=== PATIENT | female | born 1985 | race Caucasian/White ===

== ENCOUNTER → 2021-01-09 11:12 | Outpatient (CLI) | payer OTHER, SELFPAY ==
--- NOTE | 2021-01-09 11:18 | US_ITS ---
HISTORY: UTI. TECHNIQUE: Tapia scale and color Doppler sagittal and transverse images were obtained of the kidneys. # of images incl. paperwork: 105. COMPARISON: None. FINDINGS: RIGHT KIDNEY: 11.5 cm in length. Cortical thickness 11 mm. Echogenicity unremarkable. No hydronephrosis. No gross renal mass demonstrated. LEFT KIDNEY: 12.2 cm in length. Cortical thickness 12 mm. Echogenicity unremarkable. Moderate hydronephrosis. No gross renal mass demonstrated. URINARY BLADDER: Unremarkable at 329 cc with a wall thickness of 3 mm. Bilateral ureteral jets visualized.. OTHER: 2 cm dominant follicle in the right ovary. US/Kidney and Bladder IMPRESSION: Moderate left hydronephrosis. Consider correlation with CT to assess for obstructing stone or other lesion. at 1219 Reported and signed by: Jory Voss MD Electronically Signed: Jory Voss MD at 12:17 EDT Tel , Service support ,
== END ==
PROVIDERS: PCP Family Medicine; Referring Provider Urology; Visit Provider Urology
DX: N39.0 Urinary tract infection, site not specified (principal)
CPT/HCPCS: 76770

== ENCOUNTER → 2021-01-23 14:29 | Outpatient (CLI) | payer OTHER, SELFPAY ==
--- NOTE | 2021-01-23 14:37 | CT_ITS ---
EXAM: CT ABDOMEN AND PELVIS WITHOUT AND WITH INTRAVENOUS CONTRAST CLINICAL INDICATION: UTI TECHNIQUE: Helically acquired images were obtained of the abdomen and pelvis without and with intravenous contrast. This CT exam was performed using one or more of the following dose reduction techniques: automated exposure control, adjustment of the mA and/or kV according to patient size, and/or use of iterative reconstruction technique. This report was created using [employer] report generation technology. Delayed imaging was performed. Coronal and sagittal reformatted images were created and reviewed. CONTRAST: IV 100mL Isovue-300 COMPARISON: CT 01/09/2021. FINDINGS: LOWER THORAX: Unremarkable. Lung bases are clear. No cardiomegaly. No significant pericardial effusion. ABDOMEN: LIVER: Unremarkable. Homogeneous. No focal mass. GALLBLADDER AND BILE DUCTS: Unremarkable. No calcified gallstones. No gallbladder distention or wall edema. No intra- or extrahepatic biliary ductal dilation. PANCREAS: Unremarkable. No focal cystic or solid mass. SPLEEN: Unremarkable. Normal size without focal cystic or solid mass. ADRENALS: Unremarkable. No nodules. KIDNEYS AND URETERS: Bilateral renal calculi largest on the left measuring up to 5 mm. 5.1 mm x 8.5 mm proximal left ureteral calculus at the inferior L3 level. Mild left hydronephrosis most conspicuous on delayed imaging. Normal renal size and position. STOMACH AND BOWEL: Unremarkable. No stomach or bowel distention. No focal inflammatory change. PELVIS: APPENDIX: No evidence of acute appendicitis. BLADDER: Unremarkable. REPRODUCTIVE: Vaginal tampon. ABDOMEN and PELVIS: INTRAPERITONEAL SPACE: Unremarkable. No ascites or other fluid collection. No free air. BONES/JOINTS: See above. SOFT TISSUES: Unremarkable. No discrete abdominal or pelvic wall hernia. VASCULATURE: Unremarkable. Abdominal aorta is non-dilated. LYMPH NODES: Unremarkable. No enlarged lymph nodes. CT/CT Abd/Pelvis W/WO Contrast IMPRESSION: 1. Bilateral renal calculi largest on the left measuring up to 5 mm. 2. 5.1 mm x 8.5 mm proximal left ureteral calculus at the inferior L3 level. 3. Mild left hydronephrosis most conspicuous on delayed imaging. Electronically Signed: Manuelito Alvarado MD ([place]) at 15:38 EDT , Service support ,
== END ==
PROVIDERS: PCP Family Medicine; Referring Provider Urology; Visit Provider Urology
DX: N13.30 Unspecified hydronephrosis (principal); N39.0 Urinary tract infection, site not specified
CPT/HCPCS: 74178; Q9967

== ENCOUNTER → 2021-01-24 | Outpatient (CLI) | payer OTHER, SELFPAY | END | disposition home or self-care (01) | LOC: LABSPEC 13:23 | PROVIDERS: PCP Family Medicine; Referring Provider Urology; Visit Provider Urology | DX: N39.0 Urinary tract infection, site not specified (principal) | CPT/HCPCS: 87086; 87088 ==

== ENCOUNTER 2021-01-27 12:49 | Day surgery (SDC) | payer OTHER, SELFPAY ==
[2021-01-27] VITALS (11 sets, daily range): BP systolic 104–140; BP diastolic 68–82; PULSE 44–64; RESP 16; TEMP 36.1–36.3; O2SAT 93–100; BMI 35.0
[2021-01-27 13:16] LABS: Internal QC Validated? YES +Cl - CLEAR BKGD; Pregnancy, Urine Negative Negative
--- NOTE | 2021-01-27 13:29 | PCM.HP.STD ---
HPI - General HPI Narrative CASSANDRA BRICE, is a 35 F who presents for treatment of left renal and proximal ureteral stones. Informed consent was obtained. [facility] Medical History Alcohol use Cardiology follow-up encounter History of echocardiogram History of IBS History of stress test Hx of fracture of ankle Hx of sinus bradycardia Left renal stone Smoker Home Medications NK 01/24/21 [History Last Taken Unknown] Allergy/AdvReac Type Severity Reaction Status Date / Time No Known Allergies Allergy Verified 01/27/21 13:14 Surgical History Hx of wisdom tooth extraction Social History Smoking Status: Current every day smoker tobacco type: cigarettes ROS Constitutional Constitutional: Denies change in weight, fatigue or fever(s) Eyes Eyes: Denies change in vision ENT HEENT: Denies dysphagia or loss taste/smell Cardiovascular Cardiovascular: Denies chest pain, dyspnea, nausea or vomiting Respiratory/Chest Respiratory/Chest: Denies chest tightness, cough or dyspnea Gastrointestinal Gastrointestinal: Denies abdominal pain, change in stool character, nausea or vomiting Genitourinary Genitourinary: Denies burning urination or change in urinary stream Musculoskeletal Musculoskeletal: Reports systems reviewed and no addt'l complaints, except as documented Integumentary Integumentary: Denies changing lesions, lesions, pruritus, rash or wounds Neurologic Neurologic: Reports systems reviewed and no addt'l complaints, except as documented Psychiatric Psychiatric: Reports systems reviewed and no addt'l complaints, except as documented Endocrine Endocrinology: Reports systems reviewed and no addt'l complaints, except as documented Hematologic/Lymphatic Hematologic/Lymphatic: Reports systems reviewed and no addt'l complaints, except as documented Allergic/Immunologic Allergic/Immunologic: Reports systems reviewed and no addt'l complaints, except as documented Vital Signs Vital Signs Vital Signs: 01/27/21 13:16 Temperature 97.3 F L Temperature Source Temporal Pulse Rate 48 L Respiratory Rate 16 Respiratory Pattern Normal Blood Pressure 116/68 Blood Pressure Mean 84 Blood Pressure Source Monitor Blood Pressure Position Sitting Blood Pressure Location Right Arm Pulse Ox 99 Oxygen Delivery Method Room Air Weight Weight: 89.7 kg Body Mass Index (BMI) 35.0 Physical Exam Const alert, oriented x3 and no apparent distress General Appearance: cooperative and comfortable HEENT normocephalic and head/scalp atraumatic Face and Sinus: face symmetric Nose: external nose normal External Ear: external ears normal Mouth: lips normal Eyes General Eye: normal appearance of both eyes Neck supple General: trachea midline Lymph Lymphatic: no lymphedema noted Chest inspection of chest normal Chest: symmetrical chest wall rise Resp normal respiratory effort, normal air movement, no retractions and no use of accessory muscles Cardio regular rate and regular rhythm Rate: regular rate GI soft to palpation, non-tender and non-distended no CVA tenderness Back/Spine no CVA tenderness Extremity normal to inspection Skin no rashes or lesions noted, no wounds, skin turgor normal, no jaundice, no petechiae and no mottling Neuro oriented x3, CN's II-XII intact bilaterally and moves all extremities Psych mental status grossly normal, thought process normal, cooperative and affect normal Results Lab / Micro Data Labs: Laboratory Results - last 24 hr 01/27/21 13:00: Urine Test Negative Assessment & Plan Assessment/Plan (1) Left renal stone: PLAN: left ureteral stent insertion, with left renal extracorporeal shockwave lithotripsy informed consent obtained
[2021-01-27] MEDS: Lactated Ringers 1,000 ML 100 ML IV ×2 (13:36→17:04)
--- NOTE | 2021-01-27 13:39 | PCM.OPRPT ---
Problems Associated Problem List Diagnoses (1) Left renal stone: (2) Left ureteral calculus: (3) Hydronephrosis: Report of Operation Date of Procedure: 01/27/21 Pre-Operative Diagnosis: left proximal ureteral and left renal stones, hydronephrosis Post-Operative Diagnosis: same Surgery/Procedure Performed:: cystoscopy, left ureteral stent insertion, left retrograde pyelogram, left ureteral extracorporeal shockwave lithotripsy Surgeon: Andra Leggett Type of Anesthesia: General Description of Procedure: The patient is a 35-year-old female who was undergoing an evaluation for urinary tract infections who was diagnosed with a left proximal ureteral calculus with hydronephrosis along with other left renal calculi. Informed consent was obtained for definitive surgical intervention. Patient was taken the operating room and placed on the operating room table. Anesthesia monitored the head, neck, airway, IV access and vital signs throughout the case. Once anesthesia was appropriate ministered the patient was placed into dorsal lithotomy position was prepped and draped in usual sterile fashion. The cystoscope was inserted through the urethra under direct visualization into the urinary bladder. The bladder mucosa was visualized in its entirety and found to be without erythema, ulceration, mass or foreign body. The left ureter was intubated with a 0.035 Glidewire and resistance was hit at the stone. Eventually a Pollack catheter was inserted alongside the wire and contrast was injected in retrograde fashion revealing a few centimeters of ureter proximal to the stone. The wire was then able to bypass the stone and a 6 Mongolian 24 cm stent was placed over the wire with good curling above the ureteral calculus and in the urinary bladder. The lithotripter was then used to break the calculus into multiple pieces. The patient tolerated the procedure well and was awakened and taken to the recovery room in good condition. There were no complications during the procedure. Grafts/Implants Used: 6x 24 JJ stent Complications none Admit VTE Documentation VTE Present on Admission: Yes VTE Mechan Device Prophylaxis: SCD's VTE Pharm Prophylaxis ordered?: No Reason prophylaxis not ordered:: Treatment Not Indicated
--- NOTE | 2021-01-27 13:41 | PCM.DC ---
Discharge Instructions Diet Discharge Diet: No restrictions Activity Discharge Activity: Return to Normal Activity May resume sexual activity in: No Restrictions Dressing / Incision Call your doctor if you observe: Fever of 101 or Higher, Inability to urinate, Inability to have a bowel movement and Uncontrolled pain Follow Up Care Please Follow Up With: Andra Leggett MD When: in 2-3 weeks in the office with KUB Test Results: Test results from this visit will be discussed in further detail at your follow-up appointment, if applicable. Discharge Plan Admission Attending Provider: Andra Leggett Primary Care Provider: Zechariah Patel Discharge Orders/Prescriptions Prescriptions: New oxycodone-acetaminophen [oxycodone-acetaminophen] 1 TABLET tablet 2 tab PO Q8H PRN PRN (Reason: Pain) 7 Days Qty: 20 RF: 0 cephalexin [cephalexin] 500 MG capsule 500 mg PO Q12 3 Days Qty: 6 RF: 0 phenazopyridine [Pyridium] 200 MG tablet 200 mg PO TID PRN PRN (Reason: Bladder Spasms) 7 Days Qty: 30 RF: 0 Referrals / Follow Up: Zechariah Patel MD [Primary Care Provider] - Disposition Disposition (needs filled in before D/C Order can be placed): Home, Self Care
[2021-01-27] MEDS: Cefazolin 2 GM in 0.9% Normal Saline 100 ML IV (14:21)
[2021-01-27] MEDS: DiphenhydrAMINE 50 MG/ML Syringe 25 MG IV (15:53)
== END 2021-01-27 18:01 | disposition home or self-care (01) ==
LOC: SDC 12:49 → AC 12:51
PROVIDERS: Anesthesiology; PCP Family Medicine; Referring Provider Urology; Visit Provider Urology
PROC: (CPT 50590; principal; 2021-01-27 14:20)
DX: N13.2 Hydronephrosis with renal and ureteral calculous obstruction (principal); F17.210 Nicotine dependence, cigarettes, uncomplicated
CPT/HCPCS: 50590; 52332; 81025; 87426; C9803; J7120; C2617; J2405

== ENCOUNTER → 2021-02-13 09:09 | Outpatient (CLI) | payer OTHER, SELFPAY ==
--- NOTE | 2021-02-13 09:11 | RAD_ITS ---
STUDY: X-RAY - ABDOMEN/PELVIS REASON FOR EXAM: Female, 35 years old. RENAL CALC TECHNIQUE: Single AP view of the abdomen / pelvis. COMPARISON: None. FINDINGS: There is an unremarkable bowel gas pattern. A left-sided double-J stent catheter is seen with the proximal tip in the left renal pelvis and the distal tip in the bladder. There is a 4.6 mm calculus in the lower pole calyx of the left kidney. Normal soft tissue structures. Normal visualized osseous structures. RAD/Abdomen Single View IMPRESSION: Left-sided double-J stent catheter. 4.6 mm calculus in the lower pole calyx of the left kidney. Electronically Signed: Pipo Khan MD at 13:22 EDT , Service support ,
== END ==
PROVIDERS: PCP Family Medicine; Referring Provider Urology; Visit Provider Urology
DX: N20.0 Calculus of kidney (principal)
CPT/HCPCS: 74018

== ENCOUNTER 2021-03-10 07:32 | Day surgery (SDC) | payer OTHER, SELFPAY ==
--- NOTE | 2021-03-10 | CALC_PTH ---
PATIENT: CASSANDRA BRICE LOC: [facility] [place] U#:[id number] AGE/SX: 35/F ROOM: RE03/10/[address]: Dr. Andra Leggett MD : 1985 BED: DIS: 03/10/2021 SPEC #: [id number] RECD: 03/10/21 10:51 STATUS: JODIE CARLOS #: [id number] BO: 03/10/21 00:[address]: Andra Leggett DEPT: SURGICAL PATHOLOGY RECD BY: Cecilio Dowling ENTERED: 03/10/21 10:52 SP TYPE: Calculi OTHR DR: Dr. Zechairah Patel MD Tissues: CALCULI Procedures: Surgery Specimen Level I HEADER OPERATION: Cystoscopy, ureteroscopy, laser lithotripsy, basket extraction PRE-OP DIAGNOSIS: Left renal stone TISSUE SUBMITTED: Left kidney calculi GROSS DIAGNOSIS Fragments of stone, clinically left kidney calculi. SJ:brenda 03/11/2021 COMMENT The calculus is submitted in its entirety for chemical stone analysis. The results from this study will be reported separately. GROSS DESCRIPTION Received without fixative labeled with the patient's name and designated left kidney calculi. The specimen consists of multiple fragments of brownish-black stone measuring in aggregate 0.7 x 0.6 x 0.3 cm. The entire specimen is submitted for stone analysis. / KRISTEN:brenda 03/10/21 CPT: 76514
[2021-03-10 07:58] VITALS: BP 128/74; PULSE 51; RESP 16; TEMP 36.5; O2SAT 98; BMI 34.7
[2021-03-10 07:58] LABS: Internal QC Validated? YES +Cl - CLEAR BKGD; Pregnancy, Urine Negative Negative
[2021-03-10] MEDS: Lactated Ringers 1,000 ML 15 ML IV (08:04)
--- NOTE | 2021-03-10 08:23 | PCM.HP.STD ---
HPI - General HPI Narrative CASSANDRA BRICE, is a 35 F who presents for ureteroscopy, stone basket extraction of a left renal calculus status post extracorporal shockwave lithotripsy with a stent. Informed consent was obtained. She has no complaints today. She is looking forward to having her stent out as soon as possible. [facility] Medical History Alcohol use Cardiology follow-up encounter History of echocardiogram History of IBS History of stress test Hx of fracture of ankle Hx of sinus bradycardia Hydronephrosis Left renal stone Left ureteral calculus Smoker Home Medications NK 03/03/21 [History Last Taken Unknown] Allergy/AdvReac Type Severity Reaction Status Date / Time meperidine [From Demerol] Allergy Hives Verified 03/10/21 07:57 Surgical History History of cystoscopy Hx of wisdom tooth extraction Social History Smoking Status: Current every day smoker tobacco type: cigarettes ROS Constitutional Constitutional: Denies anorexia, change in weight, chills, fever(s), lethargy or malaise Eyes Eyes: Denies change in vision ENT HEENT: Reports systems reviewed and no addt'l complaints, except as documented Cardiovascular Cardiovascular: Denies abdominal pain, chest pain or dyspnea Respiratory/Chest Respiratory/Chest: Denies change in mental status, cough or dyspnea Gastrointestinal Gastrointestinal: Denies abdominal pain or change in bowel habits Genitourinary Genitourinary: Reports urinary urgency; Denies abdominal discomfort, dysuria or hematuria Musculoskeletal Musculoskeletal: Reports systems reviewed and no addt'l complaints, except as documented Integumentary Integumentary: Reports systems reviewed and no addt'l complaints, except as documented Neurologic Neurologic: Reports systems reviewed and no addt'l complaints, except as documented Psychiatric Psychiatric: Reports systems reviewed and no addt'l complaints, except as documented Endocrine Endocrinology: Reports systems reviewed and no addt'l complaints, except as documented Vital Signs Vital Signs Vital Signs: 03/10/21 07:58 Temperature 97.7 F L Temperature Source Temporal Pulse Rate 51 L Respiratory Rate 16 Respiratory Pattern Normal Blood Pressure 128/74 H Blood Pressure Mean 92 Blood Pressure Source Monitor Blood Pressure Position Semi-Fowlers Blood Pressure Location Left Arm Pulse Ox 98 Oxygen Delivery Method Room Air Weight Weight: 89 kg Body Mass Index (BMI) 34.7 Physical Exam Const alert, oriented x3 and no apparent distress HEENT normocephalic and head/scalp atraumatic Eyes conjunctivae normal General Eye: normal appearance of both eyes Neck supple General: trachea midline Lymph Lymphatic: no lymphedema noted Chest inspection of chest normal Chest: symmetrical chest wall rise Resp normal respiratory effort, normal air movement and no retractions Effort and Inspection: able to speak in complete sentences and symmetric chest movement Cardio regular rate and regular rhythm GI soft to palpation, non-tender and non-distended no CVA tenderness and external exam normal Back/Spine no CVA tenderness Extremity normal to inspection Skin no rashes or lesions noted Neuro oriented x3, CN's II-XII intact bilaterally and moves all extremities Psych mental status grossly normal, thought process normal, cooperative and affect normal Results Lab / Micro Data Labs: Laboratory Results - last 24 hr 03/10/21 07:45: Urine Test Negative Assessment & Plan Assessment/Plan (1) Left renal stone: PLAN: Proceed with cystoscopy, left ureteroscopy, left ureteral stone removal and left ureteral stent change. Informed consent obtained.
--- NOTE | 2021-03-10 08:27 | PCM.DC ---
Discharge Instructions Diet Discharge Diet: No restrictions Activity Discharge Activity: Return to Normal Activity May resume sexual activity in: No Restrictions Dressing / Incision Call your doctor if you observe: Fever of 101 or Higher, Inability to urinate, Inability to have a bowel movement and Uncontrolled pain Follow Up Care Please Follow Up With: Andra Leggett MD When: in 1 week for stent removal Test Results: Test results from this visit will be discussed in further detail at your follow-up appointment, if applicable. Discharge Plan Admission Attending Provider: Andra Leggett Primary Care Provider: Zechariah Patel Discharge Orders/Prescriptions Prescriptions: New oxycodone-acetaminophen [oxycodone-acetaminophen] 1 TABLET tablet 2 tab PO Q8H PRN PRN (Reason: Pain) 7 Days Qty: 20 RF: 0 cephalexin [cephalexin] 500 MG capsule 500 mg PO Q12 3 Days Qty: 6 RF: 0 Referrals / Follow Up: Zechariah Patel MD [Primary Care Provider] - Disposition Disposition (needs filled in before D/C Order can be placed): Home, Self Care
[2021-03-10 09:53] VITALS: BP 105/79; BP 128/74; PULSE 42; RESP 16; TEMP 36.3; O2SAT 99
[2021-03-10 10:08] VITALS: BP 110/66; BP 128/74; PULSE 38; RESP 16; O2SAT 100
--- NOTE | 2021-03-10 10:14 | PCM.OPRPT ---
Problems Associated Problem List Diagnoses (1) Left ureteral calculus: (2) Left renal stone: Report of Operation Date of Procedure: 03/10/21 Pre-Operative Diagnosis: Left renal calculus Post-Operative Diagnosis: Left renal calculus, left ureteral calculus Surgery/Procedure Performed:: Cystoscopy, left ureteroscopy, holmium laser lithotripsy, stone basket extraction of renal and ureteral calculus, left ureteral stent change Surgeon: Andra Leggett Type of Anesthesia: General Specimen's removed: renal and ureteral stones Description of Procedure: Patient is a 35-year-old female status post ureteral stent insertion and shockwave lithotripsy presenting for ureteroscopy and laser lithotripsy of the renal stone. Informed consent was obtained. The patient was taken to the operating room placed on the operating room table. Anesthesia monitored the head, neck, airway, IV access and vital signs throughout the case. Once anesthesia was appropriately ministered she was placed into dorsal lithotomy position was prepped and draped in usual sterile fashion. The cystoscope was inserted through the urethra under direct visualization into the urinary bladder. The stent was grasped and pulled to the urethra and a 0.035 Glidewire was inserted through the stent into the renal pelvis. At this time the stent was removed and a second wire was placed alongside the first. A ureteral reaccessed sheath was then inserted over the wire under fluoroscopic visualization. The ureteroscope was inserted through the sheath and into the renal pelvis. A large stone was identified in the ureter on the way to the kidney. Another stone was identified there. Both of these stones were fragmented using laser fiber. The stone basket was then used to retrieve both stones. The ureteral reaccessed sheath was removed under direct visualization with the ureteroscope and no injuries to the ureter were identified. All visible fragments were removed. At this time the cystoscope was used with the safety wire to place a new 6 Lithuanian 24 cm JJ stent with good curling in the renal pelvis as well as the urinary bladder. Stones were sent for analysis. The patient was then awakened and taken to the recovery room in good condition. There were no complications during this procedure. Grafts/Implants Used: 6x24 JJ stent Complications none Admit VTE Documentation VTE Present on Admission: Yes VTE Mechan Device Prophylaxis: SCD's VTE Pharm Prophylaxis ordered?: No Reason prophylaxis not ordered:: Treatment Not Indicated
[2021-03-10 10:23] VITALS: BP 109/57; BP 128/74; PULSE 37; RESP 16; O2SAT 99
[2021-03-10 10:28] VITALS: BP 108/79; BP 128/74; PULSE 42; RESP 16; TEMP 36.4; O2SAT 99
[2021-03-10 11:18] VITALS: BP 128/74
[2021-03-18 16:57] LABS: Source LEFT KIDNEY
== END 2021-03-10 11:21 ==
LOC: SDC 07:34 → AC 07:34
PROVIDERS: Anesthesiology; PCP Family Medicine; Referring Provider Urology; Visit Provider Urology
PROC: (CPT 52356; principal; 2021-03-10 08:55)
DX: N13.2 Hydronephrosis with renal and ureteral calculous obstruction (principal); K58.9 Irritable bowel syndrome, unspecified; F17.210 Nicotine dependence, cigarettes, uncomplicated
CPT/HCPCS: 00918; 52356; 76000; 81025; 82360; 87426; 88300; J7120; C2617; J2405

== ENCOUNTER → 2021-10-25 | Outpatient (CLI) | payer OTHER, SELFPAY ==
--- NOTE | 2021-10-25 08:12 | CT_ITS ---
STUDY: CT Abdomen And Pelvis W/O Contrast Injection 10/25/2021 8:11 PM REASON FOR EXAM: Female, 36 years old. ABDOMINAL PAIN KIDNEY STONE TECHNIQUE: Transaxial images were obtained without oral contrast, and without intravenous contrast. Individualized dose optimization techniques were used for this CT. COMPARISON: 01/23/2021. FINDINGS: The visualized lung bases are unremarkable. The visualized portions of the heart are within normal limits. Unremarkable liver. Unremarkable gallbladder and extrahepatic biliary system. Unremarkable spleen. Unremarkable pancreas. Unremarkable bilateral adrenal glands. Non obstructive 2 mm right renal parenchymal stones. Non obstructive 2 mm left renal parenchymal stones. Unremarkable visualized stomach. Unremarkable small intestine. Unremarkable colon. The appendix is visualized and appears unremarkable. There are no acute findings of the abdominal aorta. Unremarkable inferior vena cava. Subcentimeter mesenteric lymph nodes. Unremarkable urinary bladder. Normal visualized uterus. There is an umbilical hernia containing fat. There are diffuse degenerative changes of the visualized lumbar spine. CT/Abdomen/Pelvis without Cont IMPRESSION: (NOT LISTED IN ORDER OF SIGNIFICANCE) There are bilateral renal calculi. There is no evidence for an obstruction. There is no hydronephrosis. Other findings as above. Electronically Signed: Morris Proctor MD at 20:13 EDT ,
== END | disposition home or self-care (01) ==
PROVIDERS: PCP Family Medicine; Referring Provider Urology; Visit Provider Urology
DX: N20.0 Calculus of kidney (principal); R31.9 Hematuria, unspecified
CPT/HCPCS: 74176

== ENCOUNTER → 2023-08-18 | Outpatient (CLI) | payer OTHER, SELFPAY | END | disposition home or self-care (01) | LOC: LABSPEC 16:33 | PROVIDERS: PCP Family Medicine; Visit Provider Physician Assistant | DX: R39.9 Unspecified symptoms and signs involving the genitourinary system (principal) | CPT/HCPCS: 87086; 87088 ==